=== PATIENT | male | born 1990 | race Caucasian/White ===

== ENCOUNTER 2016-05-18 02:11 | Observation (INO) | payer SELFPAY ==
[2016-05-18] MEDS ORDERED: OXYCODONE-ACETAMINOPHEN 5-325 MG TABLET PO ONE (02:33)
[2016-05-18] MEDS ORDERED: NORMAL SALINE 1000 ML 1,000 ML IV ONE (04:46)
[2016-05-18] MEDS ORDERED: KETOROLAC TROMETHAMINE INJ/PF 30 MG/1 ML SDV IV ONE (04:46)
[2016-05-18] MEDS ORDERED: ONDANSETRON HCL INJ/PF 4 MG/2 ML SDV IV ONE (04:46)
[2016-05-18 04:48] LABS: AMORPHOUS SEDIMENT,URINE 1+ /HPF; APPEARANCE,URINE TURBID; BILIRUBIN,URINE NEGATIVE (NEGATIVE); GLUCOSE, URINE 50 mg/dL (NEGATIVE); KETONES,URINE NEGATIVE (NEGATIVE); LEUKOCYTE ESTERASE,URINE NEGATIVE (NEGATIVE); NITRITE,URINE NEGATIVE (NEGATIVE); PROTEIN,URINE NEGATIVE (NEGATIVE); URINE SPECIFIC GRAVITY 1.017; UROBILINOGEN,URINE NEGATIVE mg/dL (<2.0)
--- NOTE | 2016-05-18 04:48 | ER Document Report ---
ED GI/ - General Chief Complaint: Upper Abdominal Pain Stated Complaint: FLANK PAIN Time seen by provider: 04:40 Notes: Patient is a 26-year-old male that comes emergency department for chief complaint of pain that radiates from his right mid upper abdomen around to his right flank, symptoms started suddenly at 10:30 PM, he reports sharp pain, he states he has vomited several times. Symptoms started before he tried to eat dinner. Past medical history of orthopedic surgery, denies any other medical history. TRAVEL OUTSIDE OF THE [place] IN LAST 30 DAYS: No - Related Data Allergies/Adverse Reactions: No Known Allergies Allergy (Unverified 05/18/16 02:55) Past Medical History - General Information source: Patient - Social History Smoking Status: Never Smoker Frequency of alcohol use: None Drug Abuse: None Lives with: Family Family History: Reviewed & Not Pertinent Patient has suicidal ideation: No Patient has homicidal ideation: No - Medical History Medical History: Negative Renal/ Medical History: Denies: Hx Peritoneal Dialysis Surgical Hx: Negative - Immunizations Immunizations up to date: Yes Hx Diphtheria, Pertussis, Tetanus Vaccination: Yes Review of Systems - Review of Systems Constitutional: No symptoms reported EENT: No symptoms reported Cardiovascular: No symptoms reported Respiratory: No symptoms reported Gastrointestinal: See HPI Genitourinary: No symptoms reported Male Genitourinary: No symptoms reported Musculoskeletal: No symptoms reported Skin: No symptoms reported Hematologic/Lymphatic: No symptoms reported Neurological/Psychological: No symptoms reported Physical Exam - Vital signs Vitals: Temp Pulse Resp BP Pulse Ox 97.3 F 63 29 H 137/74 H 100 05/18/16 02:40 05/18/16 02:40 05/18/16 02:40 05/18/16 02:40 05/18/16 02:40 Interpretation: Normal - General General appearance: Alert In distress: Mild - Patient does appear to be in some pain but is not in any distress - HEENT Head: Normocephalic, Atraumatic Eyes: Normal Conjunctiva: Normal Extraocular movements intact: Yes Eyelashes: Normal Pupils: PERRL Nasal: Normal Mouth/Lips: Normal Mucous membranes: Normal Pharynx: Normal Neck: Normal - Respiratory Respiratory status: No respiratory distress Chest status: Nontender Breath sounds: Normal. No: Decreased air movement, Wheezing Chest palpation: Normal - Cardiovascular Rhythm: Regular. No: Tachycardia Heart sounds: Normal auscultation, S1 appreciated, S2 appreciated Murmur: No - Abdominal Inspection: Normal Distension: No distension Bowel sounds: Normal Tenderness: Tender - Significant tenderness and positive Guzman sign, abdominal exam is unremarkable otherwise, Guzman's sign - Back Back: Normal, Nontender. No: Tender - Extremities General upper extremity: Normal inspection, Nontender, Normal ROM, Normal strength General lower extremity: Normal inspection, Nontender, Normal ROM, Normal strength - Neurological Neuro grossly intact: Yes Cognition: Normal Orientation: AAOx4 [place] Coma Scale Eye Opening: Spontaneous Wagner Coma Scale Verbal: Oriented [place] Coma Scale Motor: Obeys Commands Wagner Coma Scale Total: 15 Speech: Normal Motor strength normal: LUE, RUE, LLE, RLE Sensory: Normal - Psychological Associated symptoms: Normal affect, Normal mood - Skin Skin Temperature: Warm Skin Moisture: Dry Skin Color: Normal Course - Re-evaluation Re-evalutation: Patient with right upper quadrant tenderness on examination, otherwise unremarkable abdominal exam. Positive Guzman sign. Urinalysis unremarkable, no hematuria suggesting this is a kidney stone. Patient's mother has had a cholecystectomy. Patient will be kept nothing by mouth, given IV fluids and pain medication. CBC shows mild leukocytosis with no bandemia, chemistry and lipase are unremarkable. Ultrasound shows 15 mm gallstone in the gallbladder duct with gallbladder wall thickening and positive Guzman sign. Patient was discussed with Dr. Lewis per [facility] protocol. Discussed with surgery injection machine operator, Dr. Patel, he states he will evaluate the patient. - Vital Signs Vital signs: Temp Pulse Resp BP Pulse Ox 97.3 F 63 29 H 137/74 H 100 05/18/16 02:40 05/18/16 02:40 05/18/16 02:40 05/18/16 02:40 05/18/16 02:40 - Laboratory Result Diagrams: 05/18/16 05:07 05/18/16 05:07 Laboratory results interpreted by me: 05/18/16 05/18/16 05/18/16 04:14 05:07 05:07 WBC 12.8 H Seg Neutrophils % 85.4 H Lymphocytes % 9.5 L Absolute Neutrophils 10.9 H Glucose 125 H Urine Glucose (UA) 50 H Discharge - Discharge Clinical Impression: Thickening of wall of gallbladder, Right upper quadrant pain Cholelithiasis Qualifiers: Cholelithiasis location: gallbladder Cholecystitis presence: with cholecystitis Cholecystitis acuity: acute Biliary obstruction: without biliary obstruction Qualified Code(s): K80.00 - Calculus of gallbladder with acute cholecystitis without obstruction Vomiting Qualifiers: Vomiting type: unspecified Vomiting Intractability: non-intractable Nausea presence: with nausea Qualified Code(s): R11.2 - Nausea with vomiting, unspecified Condition: Stable Disposition: ADMITTED INPATIENT Admitting Provider: Surgicalist Unit Admitted: Surgical Floor
[2016-05-18 05:16] LABS: ABSOLUTE BASOPHILS # (AUTO) 0.1 10^3/uL (0.0-0.2); ABSOLUTE LYMPHOCYTES (AUTO) 1.2 10^3/uL (0.5-4.7); ABSOLUTE MONOCYTES (AUTO) 0.6 10^3/uL (0.1-1.4); ABSOLUTE NEUT (AUTO) 10.9 10^3/uL (1.7-8.2); BASOPHILS % (AUTO) 0.4 % (0-2); EOSINOPHILS % (AUTO) 0.1 % (0-6); HEMATOCRIT 43.5 % (37.9-51.0); HEMOGLOBIN 14.7 g/dL (13.5-17.0); HGB HCT DIFFERENCE 0.6; LYMPHOCYTES % (AUTO) 9.5 % (13-45); MEAN CORPUSCULAR HEMOGLOBIN 28.9 pg (27.0-33.4); MEAN CORPUSCULAR HGB CONC 33.8 g/dL (32.0-36.0); MEAN CORPUSCULAR VOLUME 86 fl (80-97); MONOCYTES % (AUTO) 4.6 % (3-13); RED BLOOD COUNT 5.09 10^6/uL (4.35-5.55); RED CELL DISTRIBUTION WIDTH 12.6 % (11.5-14.0); SEGMENTED NEUTROPHILS % (AUTO) 85.4 % (42-78); WHITE BLOOD COUNT 12.8 10^3/uL (4.0-10.5)
[2016-05-18 05:37] LABS: ALANINE AMINOTRANSFERASE 41 U/L (21-72); ALBUMIN 4.1 g/dL (3.5-5.0); ALKALINE PHOSPHATASE 67 U/L (38-126); ANION GAP 10 (5-19); ASPARTATE AMINO TRANSFERASE 18 U/L (17-59); BILIRUBIN,TOTAL 0.5 mg/dL (0.2-1.3); BLOOD UREA NITROGEN 14 mg/dL (7-20); CALCIUM 9.8 mg/dL (8.4-10.2); CARBON DIOXIDE 28 mmol/L (22-30); CHLORIDE 103 mmol/L (98-107); CREATININE RESULT 0.78 mg/dL (0.52-1.25); GLUCOSE 125 mg/dL (75-110); LIPASE 117.2 U/L (23-300); SODIUM 140.9 mmol/L (137-145)
[2016-05-18] MEDS ORDERED: NORMAL SALINE 1000 ML 1,000 ML IV PRN (06:14)
[2016-05-18] MEDS ORDERED: PIPERACILLIN/TAZOBACTAM 3.375 GM VIAL IV ONE (06:52)
[2016-05-18] MEDS ORDERED: AMPICILLIN SOD/SULBACTAM 3 GM VIAL IV ONE (07:00)
[2016-05-18] MEDS ORDERED: DEXAMETHASONE SOD PHOSPHATE INJ 4 MG/1 ML VIAL ONE (10:46)
[2016-05-18] MEDS ORDERED: NEOSTIGMINE METHYLSULFATE 10 MG/10 ML VIAL ONE (10:46)
[2016-05-18] MEDS ORDERED: LIDOCAINE 2% INJ-PF (20 MG/ML) 10 ML AMPUL ONE (10:46)
[2016-05-18] MEDS ORDERED: GLYCOPYRROLATE INJ 0.4 MG/2 ML VIAL ONE (10:46)
[2016-05-18] MEDS ORDERED: ROCURONIUM BROMIDE INJ 50 MG/5 ML VIAL IV ONE (10:46)
--- NOTE | 2016-05-18 11:07 | PDOC H&P ---
History of Present Illness Admission Date/PCP: 05/18/16 07:00 History of Present Illness: SHAUN JOLLY is a 26 year old white male presented to the emergency department early on the morning of 05/18/2016. He reports 2 years of intermittent epigastric and right upper quadrant pain. His bouts usually began within an hour of eating. They would last 3-6 hours. Some of the bouts involved nausea and vomiting. He is also had diarrhea over the last 8 months. He believes the bouts became more frequent and more severe. He tried taking an antacid over-the -counter. Initially it seemed to help, but over the last several months it has failed to provide any relief. The current bout began at 9 PM. He had feeling of epigastric discomfort. By 10:30 PM, his pain was 7/10. He had nausea. At 1 AM his pain was 10/10, he was riding on the ground and pain. He presented to the emergency room and had nausea and large volume emesis. The pain was in the epigastrium but then localized to the right upper quadrant. At 3:30 AM the pain also radiated to the back. In addition to the nausea, vomiting, epigastric and right upper quadrant pain and diarrhea, he reports some lightheadedness. Additionally he did not have shortness of breath per se, but was very hard to take any deep breaths. His urine was slightly cloudy/darker, but denies tea-colored urine or acholic stools. He denies fevers, chills, seizures, tremors, shakes, dizziness, vision changes, cold, cough, sinus drainage, chest pain, leg swelling, jaundice, rash, itching. His white count is elevated at 12.8. His right upper quadrant ultrasound revealed a distended gallbladder with a 15 mm gallstone lodged in the gallbladder neck, additional gallstones/sludge, pericholecystic fluid, thickened gallbladder wall, positive Guzman sign. Past Medical History Medical History: Other - History of a broken arm. Past Surgical History Past Surgical History: Reports: Orthopedic Surgery - Right shoulder scope Social History Information Source: Patient Lives with: Family - Lives with and 2-year-old boy, Neil. Smoking Status: Never Smoker Frequency of Alcohol Use: Rare Hx Recreational Drug Use: No Drugs: None Hx Prescription Drug Abuse: No Family History Family History: Hypertension, Other - Family history of prediabetes and gallbladder issues. No personal or family history of bleeding disorders, blood clots or anesthesia problems. Parental Family History Reviewed: Yes Children Family History Reviewed: Yes Sibling(s) Family History Reviewed.: Yes Medication/Allergy Home Medications: No Home Medications 05/18/16 Allergies/Adverse Reactions: No Known Allergies Allergy (Unverified 05/18/16 02:55) Review of Systems All systems: reviewed and no additional remarkable complaints except as stated Physical Exam Vital Signs: Temp Pulse Resp BP Pulse Ox 98.0 F 63 20 107/64 98 05/18/16 08:19 05/18/16 08:19 05/18/16 08:19 05/18/16 08:19 05/18/16 08:19 General appearance: PRESENT: no acute distress Head exam: PRESENT: normocephalic Eye exam: PRESENT: EOMI. ABSENT: scleral icterus Mouth exam: PRESENT: tongue midline Neck exam: ABSENT: JVD, lymphadenopathy, tenderness, thyromegaly Respiratory exam: PRESENT: clear to auscultation maximino Cardiovascular exam: PRESENT: RRR GI/Abdominal exam: PRESENT: Guzman's sign, normal bowel sounds, soft, tenderness , other - Tender in the right upper quadrant with Guzman sign. Tender right flank and right back. No tender groin bulges. No peritoneal signs.. ABSENT: distended, guarding, rigid Extremities exam: ABSENT: pedal edema, tenderness Musculoskeletal exam: ABSENT: tenderness Neurological exam: PRESENT: alert, awake, oriented to person, oriented to place , oriented to time, oriented to situation Psychiatric exam: PRESENT: appropriate affect, normal mood Skin exam: ABSENT: jaundice, rash Results Impressions: Abdomen Ultrasound 05/18/16 05:14 IMPRESSION: 15 mm stone in the gallbladder neck, with gallbladder wall thickening and positive sonographic Guzman sign worrisome for acute cholecystitis Status: Image reviewed by me Assessment & Plan - Diagnosis (1) Cholecystitis, acute with cholelithiasis Qualifiers: Cholelithiasis location: gallbladder Is this a current diagnosis for this admission?: YesPlan: We discussed gallbladder disease in detail. Pictures were drawn. We discussed nonoperative versus operative management. We discussed laparoscopic cholecystectomy with cholangiogram in detail. We discussed the risks, benefits and alternatives including , heart attack, stroke, blood clots in the legs , blood clots in lungs, pneumonia, bleeding, infection, hernia, bile leak, failure of symptoms to resolve, long-term diarrhea, damage to surrounding structures such as bladder, bowels, blood vessels or bile duct resulting in serious long-term health issues. We discussed the possibility of retained stone with need for further procedure such as ERCP. Questions were answered. Understands and wishes to proceed.
[2016-05-18] MEDS ORDERED: ONDANSETRON HCL INJ/PF 4 MG/2 ML SDV IV PRN (11:27)
[2016-05-18] MEDS ORDERED: MORPHINE SULFATE 10 MG/ML INJ IV PRN (11:28)
[2016-05-18] MEDS ORDERED: PIPERACILLIN SODIUM/TAZOBACTAM 3.375 GM in NORMAL SALINE 100 ML IV SCH (12:00)
[2016-05-18] MEDS ORDERED: LIDOCAINE 1% INJ-PF (10 MG/ML) 30 ML SDV ONE (12:18)
[2016-05-18] MEDS ORDERED: BUPIVACAINE HCL 0.25% /EPINEPHRINE INJ/PF 30 ML SDV ONE (12:19)
[2016-05-18] MEDS ORDERED: HYDROMORPHONE HCL INJ/PF 2 MG/ML AMPULE ONE (12:38)
[2016-05-18] MEDS ORDERED: MIDAZOLAM 2 MG/2 ML INJ ONE (12:38)
[2016-05-18] MEDS ORDERED: FENTANYL CITRATE INJ/PF 250 MCG/5 ML AMPULE ONE (12:38)
[2016-05-18] MEDS ORDERED: EPHEDRINE SULFATE INJ 50 MG/1 ML AMPULE ONE (12:39)
[2016-05-18] MEDS ORDERED: PROPOFOL INJ 200 MG/20 ML VIAL IV ONE (12:39)
[2016-05-18] MEDS ORDERED: PROMETHAZINE HCL INJ 25 MG/1 ML VIAL IV PRN (13:53)
[2016-05-18] MEDS ORDERED: MEPERIDINE HCL/PF INJ 25 MG/1 ML DISP.SYRIN IV PRN (13:53)
[2016-05-18] MEDS ORDERED: FENTANYL CITRATE INJ/PF 100 MCG/2 ML AMPUL IV PRN ×3 (13:53)
[2016-05-18] MEDS ORDERED: DIPHENHYDRAMINE HCL 50 MG/ML VIAL IV PRN (13:53)
--- NOTE | 2016-05-18 15:05 | Operative Report ---
Operative Report DATE OF SURGERY: 05/18/16 PREOPERATIVE DIAGNOSIS: Acute cholecystitis with cholelithiasis POSTOPERATIVE DIAGNOSIS: Acute cholecystitis with cholelithiasis OPERATION: Laparoscopic Cholecystectomy with cholangiogram SURGEON: CARA KILPATRICK ANESTHESIA: GA TISSUE REMOVED OR ALTERED: Gallbladder with stones, sent to pathology COMPLICATIONS: None noted ESTIMATED BLOOD LOSS: minimal INTRAOPERATIVE FINDINGS: Acute cholecystitis with cholelithiasis PROCEDURE: The patient was brought to the operative suite and placed supine on the OR table. Timeout was performed. Antibiotics were administered. Padding and positioning was appropriate. The patient was induced, intubated and maintained on general endotracheal anesthesia throughout the procedure. Patient was prepped and draped in the normal sterile fashion. The skin above the umbilicus was infiltrated with local anesthetic. A 5 mm incision was made. [A Vicente and Adson were used to dissect down to the level of the fascia, grasped the fascia and elevate it.] [The Veress needle was placed.] [Satisfactory water drop test was performed.] Low flow insufflation was connected and yielded low opening pressure. Insufflation was advanced to high flow and pneumoperitoneum of 15 mmHg was obtained and maintained with procedure. Trocar and camera were placed through this incision confirming entry into the abdominal cavity without incident. Next the 11 mm epigastric and the two 5 mm right subcostal trochars were placed in the normal location and fashion under direct visualization, after infiltration with local anesthetic. Instruments were introduced. [The abdominal cavity was surveyed and appeared normal except for the gallbladder.] There was significant inflammation of the gallbladder wall with a transudative fluid surrounding it. The fundus of the gallbladder was elevated over the liver edge. The dissection the gallbladder began on the lateral aspect. Dissection continued down to the triangle of Calot. The cystic artery and the cystic duct were dissected out and seen to be clearly entering the gallbladder with no obscuration. The cystic duct was clipped adjacent to the gallbladder. [A ductotomy was made. A cholangiocatheter was inserted. A cholangiogram was performed showing good filling of the biliary tree proximally and distally on down into the duodenum with no filling defects. The cholangiocatheter was removed.] The cystic duct was clipped 3 times proximally and divided between clips. The cystic artery was clipped twice proximally and once distally against the gallbladder and divided between the clips. The gallbladder was removed from the gallbladder fossa with hook electrocautery. It was placed in an Endo Catch bag and removed through the epigastric trocar site. It was sent to pathology for further analysis. There was some leakage of bile from the fundus where the grasper was holding. The bowel was aspirated. [The field was copiously irrigated and suctioned.] The field was intact with no leakage of bile or blood. Clips were in place. The abdominal cavity was surveyed and was unremarkable. Trocar sites were infiltrated with more local anesthetic. The epigastric trocar site was closed at the level of the fascia with 0 Vicryl suture using the Endo Close needle. Pneumoperitoneum was released. Trochars were removed. Incisions were closed at the level of the skin with 4-0 Monocryl. The closed incisions were dressed with benzoin tincture, Steri- Strips and Band-Aids. All lap needle sponge counts were correct. The patient tolerated procedure well and was taken recovery in stable condition.
[2016-05-18] MEDS: RINGERS SOLUTION,LACTATED 1,000 ML IV PRN ×2 (18:12→23:22)
[2016-05-18] MEDS: HYDROCODONE/ACETAMINOPHEN 5-325 MG TABLET PO PRN ×2 (19:50→23:32)
[2016-05-19] MEDS: RINGERS SOLUTION,LACTATED 1,000 ML IV PRN (05:01)
[2016-05-19] MEDS: HYDROCODONE/ACETAMINOPHEN 5-325 MG TABLET PO PRN ×2 (08:35→11:36)
--- NOTE | 2016-05-19 14:23 | PDOC DISCHARGE SUMMARY ---
General - Admit/Disc Date/PCP Admission Date/Primary Care Provider: 05/18/16 07:00 Discharge Date: 05/19/16 - Discharge Diagnosis (1) Cholecystitis, acute with cholelithiasis Is this a current diagnosis for this admission?: Yes - Additional Information Resuscitation Status: Full Code Discharge Diet: Regular Discharge Activity: No Lifting Over 10 Pounds, Walk Frequently Home Medications: Hydrocodone/Acetaminophen [[place] 5-325 mg Tablet] 1 tab PO Q3HP PRN #14 tablet 05/19/16 History of Present Illness History of Present Illness: SHAUN JOLLY is a 26 year old white male presented to the emergency department early on the morning of 05/18/2016. He reports 2 years of intermittent epigastric and right upper quadrant pain. His bouts usually began within an hour of eating. They would last 3-6 hours. Some of the bouts involved nausea and vomiting. He is also had diarrhea over the last 8 months. He believes the bouts became more frequent and more severe. He tried taking an antacid over-the -counter. Initially it seemed to help, but over the last several months it has failed to provide any relief. The current bout began at 9 PM. He had feeling of epigastric discomfort. By 10:30 PM, his pain was 7/10. He had nausea. At 1 AM his pain was 10/10, he was riding on the ground and pain. He presented to the emergency room and had nausea and large volume emesis. The pain was in the epigastrium but then localized to the right upper quadrant. At 3:30 AM the pain also radiated to the back. In addition to the nausea, vomiting, epigastric and right upper quadrant pain and diarrhea, he reports some lightheadedness. Additionally he did not have shortness of breath per se, but was very hard to take any deep breaths. His urine was slightly cloudy/darker, but denies tea-colored urine or acholic stools. He denies fevers, chills, seizures, tremors, shakes, dizziness, vision changes, cold, cough, sinus drainage, chest pain, leg swelling, jaundice, rash, itching. His white count is elevated at 12.8. His right upper quadrant ultrasound revealed a distended gallbladder with a 15 mm gallstone lodged in the gallbladder neck, additional gallstones/sludge, pericholecystic fluid, thickened gallbladder wall, positive Guzman sign. Hospital Course Hospital Course: Patient was admitted on 05/18/2016. He was taken the operative suite where laparoscopic cholecystectomy with cholangiogram was performed. There were no interoperative issues. The patient was admitted to the floor. His diet was advanced. His pain was well-controlled with oral pain pills. He was ambulating , urinating, tolerating diet. He was discharged home on 05/19/2016. Physical Exam Vital Signs: Temp Pulse Resp BP Pulse Ox 98.2 F 74 16 124/67 99 05/19/16 11:45 05/19/16 11:45 05/19/16 11:45 05/19/16 11:45 05/19/16 11:45 Intake & Output 05/18/16 05/19/16 05/20/16 06:59 06:59 06:59 Intake Total 5040 Output Total 1005 Balance 4035 Weight 75.9 kg General appearance: PRESENT: no acute distress Head exam: PRESENT: normocephalic Eye exam: PRESENT: EOMI Mouth exam: PRESENT: tongue midline Respiratory exam: PRESENT: unlabored GI/Abdominal exam: PRESENT: soft, tenderness - Appropriately tender to palpation near incisions. Incisions dressed with Band-Aids and Steri-Strips.. ABSENT: distended, firm, guarding, rebound, rigid Neurological exam: PRESENT: alert, oriented to situation Psychiatric exam: PRESENT: appropriate affect, normal mood Skin exam: ABSENT: jaundice Results Impressions: Cholangiogram 05/18/16 00:00 IMPRESSION: INTRAOPERATIVE CHOLANGIOGRAM. Abdomen Ultrasound 05/18/16 05:14 IMPRESSION: 15 mm stone in the gallbladder neck, with gallbladder wall thickening and positive sonographic Guzman sign worrisome for acute cholecystitis Plan Discharge Plan: Discharge home. Continue to deep breathe and cough. Walk frequently. No lifting over 10 pounds for 2 weeks. Remove Band-Aids in 24 hours and shower daily. No tub/bath/pool for 2 weeks. Remove Steri-Strips in [address] on narcotics. Take stool softener while on narcotics to prevent constipation. Follow-up in clinic in 10-14 days with YUE Armendariz.
[2016-05-19 14:30] VITALS: BP 121/69
== END 2016-05-19 15:12 | disposition home or self-care (01) ==
LOC: ER 02:11 → EH 07:00 → OBSVTOIN 07:00 → INTOOBSV 07:00 → UNDOADMIN 07:52 → EH 07:52 → 2N 10:50
PROVIDERS: ATTEND Surgery
PROC: 3E033GC Introduction of Other Therapeutic Substance into Peripheral Vein, Percutaneous Approach (ICD-10-PCS; 2016-05-18)
PROC: 3E0337Z Introduction of Electrolytic and Water Balance Substance into Peripheral Vein, Percutaneous Approach (ICD-10-PCS; 2016-05-18)
PROC: 0FT44ZZ Resection of Gallbladder, Percutaneous Endoscopic Approach (ICD-10-PCS; 2016-05-18)
PROC: BF031ZZ Plain Radiography of Gallbladder and Bile Ducts using Low Osmolar Contrast (ICD-10-PCS; 2016-05-18)
PROC: 3E033GC Introduction of Other Therapeutic Substance into Peripheral Vein, Percutaneous Approach (ICD-10-PCS; principal; 2016-05-18 13:00)
DX: K80.00 Calculus of gallbladder with acute cholecystitis without obstruction (principal); K80.10 Calculus of gallbladder with chronic cholecystitis without obstruction
CPT/HCPCS: 99285; 96361; 96374; 96375; 36415; 83690; 85025; 80053; 81001; 88304 ×2; 74300; 76705; 94799; 47563; G0378 ×3; Q9967; J2250; J3490 ×4; J1100; J3010; J0295; J1885; J1170; J2405; J7030; J7120 ×2; J2704; 790

== ENCOUNTER → 2020-04-28 | Outpatient (CLI) | payer SELFPAY ==
[~2020-04-28] MED LIST: COVID-19 VACCINE (PFIZER)/PF 30 MCG/0.3 ML VIAL IM ONE; EPINEPHRINE INJ/PF 1 MG/1 ML AMPULE IM PRN
== END ==
LOC: EMPHEALTH 11:15
PROVIDERS: ATTEND Internal Medicine
DX: Z23 Encounter for immunization (principal)
CPT/HCPCS: 91300